=== PATIENT | male | born 1970 | race Caucasian/White ===

== ENCOUNTER 2017-09-21 20:20 | Emergency (ER) | payer OTHER ==
[2017-09-21 20:52] LABS: BASO % 0.5 % (0.0-1.0); EOS % 0.6 % (0.0-3.0); HEMATOCRIT 40.2 % (42.0-52.0); HEMOGLOBIN 14.4 g/dl (13.5-17.5); IMMATURE GRANULOCYTE % 0.3 % (0-3.0); LYMPH # 1.4 10^3/uL (1.5-4.5); LYMPH % 21.5 % (24.0-44.0); MEAN CORPUSCULAR HEMOGLOBIN 30.6 pg (27.0-33.0); MEAN CORPUSCULAR HGB CONC 35.8 g/dl (32.0-36.5); MEAN CORPUSCULAR VOLUME 85.4 fl (80.0-96.0); MONO # 0.5 10^3/uL (0.0-0.8); MONO % 7.2 % (0.0-5.0); NEUTROPHILS # 4.7 10^3/uL (1.8-7.7); NEUTROPHILS % 69.9 % (36.0-66.0); PLATELET COUNT, AUTOMATED 206 10^3/uL (150-450); RED BLOOD COUNT 4.71 10^6/uL (4.30-6.10); RED CELL DISTRIBUTION WIDTH 11.6 % (11.5-14.5); WHITE BLOOD COUNT 6.7 10^3/uL (4.0-10.0)
[2017-09-21 21:13] LABS: ANION GAP 9 MEQ/L (8-16); BLOOD UREA NITROGEN 12 MG/DL (7-18); CARBON DIOXIDE LEVEL 26 MEQ/L (21-32); CHLORIDE LEVEL 104 MEQ/L (98-107); CK-MB VALUE MASS 1.2 NG/ML (<3.6); CPK CREATINE PHOSPHOKINASE 143 U/L (39-308); CREATININE FOR GFR 1.25 MG/DL (0.70-1.30); GLOMERULAR FILTRATION RATE > 60.0 (>60); GLUCOSE, FASTING 127 MG/DL (70-100); MB/CK RELATIVE INDEX 0.83 (< OR =4); POTASSIUM SERUM 3.5 MEQ/L (3.5-5.1); SODIUM LEVEL 139 MEQ/L (136-145); TROPONIN I < 0.02 NG/ML (< 0.10)
[2017-09-21 21:41] LABS: D-DIMER QUANT 337.7 ng/ml (<500)
[2017-09-21] MEDS: NITROGLYCERIN 0.4 MG SUBL TABLET SL ×2 (22:00→22:07)
[2017-09-22 01:30] LABS: CPK CREATINE PHOSPHOKINASE 121 U/L (39-308); MB/CK RELATIVE INDEX 0.82 (< OR =4); TROPONIN I < 0.02 NG/ML (< 0.10)
== END 2017-09-22 02:00 | disposition home or self-care (01) ==
LOC: M ED 09-22 02:00
DX: R07.89 Other chest pain (principal); R94.31 Abnormal electrocardiogram [ECG] [EKG]; Z82.49 Family history of ischemic heart disease and other diseases of the circulatory system
CPT/HCPCS: 71046

== ENCOUNTER → 2018-04-18 | Outpatient (CLI) | payer OTHER ==
--- NOTE | 2018-04-18 10:38 | REP ---
CT chest without contrast: History: Abnormal chest x-ray. Nodularity. Comparison chest x-ray April 07, 2018. Apparently this chest x-ray was read as showing a 1 cm subpleural nodule in the cardiophrenic angle. 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 There is a 3 mm calcified granuloma in the lingular segment of the left upper lobe at the left lung base anteriorly. The lung wilcox are otherwise entirely clear. Pleural angles are sharp. No significant pulmonary nodule is seen. No mass lesion or infiltrate is observed. Cardiomediastinal silhouette is unremarkable. No pleural or pericardial effusion is seen. No bony abnormality is seen. Normal adrenals are observed. The visualized upper abdominal structures are unremarkable. Impression: No active disease. Calcified granuloma in the lingular segment left upper lobe. Otherwise clear lung wilcox. Electronically Signed by Harsha San MD 04/18/2018 04:31 P
== END ==
LOC: M RAD 08:17
PROVIDERS: ATTEND Family Medicine
DX: R91.8 Other nonspecific abnormal finding of lung field (principal)